=== PATIENT | female | born 1990 | race Two or more races ===

== ENCOUNTER 2018-12-22 17:15 | Observation (INO) | payer MEDICAID ==
--- NOTE | 2018-12-22 18:03 | OBPROG ---
Labor Progress Note Assessment/Plan: Assessment: 28 y/o @ 23 0/7 weeks s/p fall Plan: assessment is reassuring. No evidence of trauma. D/c home with reassurance and instructions to follow-up @ [facility] [address] as scheduled. 12/22/18 18:03 Subjective/Intrapartum Course: 12/22/18 17:59 Pt is a [facility] patient who reports falling down her stairs onto her buttocks today. She felt neck pain initially, but was most concerned about well being. She was offered an evaluation in the ER, but declined because she wanted to make sure her baby was ok. She has felt no VB, LOF and has felt FM since she has been here. She now reports mild neck stiffness and is declining Tylenol or ER evaluation. - Contraction Pattern Assessment Current Contraction Pattern: Other (Specify) (none) - FHR Assessment Huff FHR (bpm): 140 Oxytocin Orders Assessment - Pre-Induction/Augmentation Assessment Gestational Age: 23 week(s) and 0 day(s) ICD10 Worksheet Patient Problems: Problems Problem Status Onset Dang infection of genital region Acute Acute Back pain affecting Acute Oligohydramnios in third trimester Acute Vaginal bleeding during , antepartum Acute with third trimester bleeding, antepartum Acute
== END 2018-12-22 18:00 | disposition home or self-care (01) ==
LOC: FLD 17:15
PROVIDERS: ADMIT Obstetrics & Gynecology; ATTEND Obstetrics & Gynecology
DX: O9A.212 Injury, poisoning and certain other consequences of external causes complicating pregnancy, second trimester (principal); W10.8XXA Fall (on) (from) other stairs and steps, initial encounter; M54.2 Cervicalgia; Z3A.23 23 weeks gestation of pregnancy

== ENCOUNTER 2019-04-16 07:10 | Inpatient (IN) | payer MEDICAID, OTHER ==
[2019-04-16] MEDS ORDERED: OLIVE OIL 118 ML BTL MISC PRN (07:49)
[2019-04-16] MEDS ORDERED: PENICILLIN G POTASSIUM 5,000,000 UNIT in D5W 150 ML IV ONE (07:49)
[2019-04-16] MEDS ORDERED: OXYTOCIN/RINGERS LACTATE 1,000 ML IV PRN (07:49)
[2019-04-16] MEDS ORDERED: LR 1,000 ML IV PRN (07:49)
[2019-04-16] MEDS ORDERED: EPSOM SALT 454 GM TP PRN (07:49)
[2019-04-16] MEDS ORDERED: LIDOCAINE 1% 300 MG/30 ML SDV SC PRN (07:49)
[2019-04-16] MEDS ORDERED: IBUPROFEN 600 MG TAB PO PRN (07:49)
[2019-04-16] MEDS ORDERED: MISOPROSTOL 200 MCG TAB PR PRN (07:49)
[2019-04-16] MEDS ORDERED: MISOPROSTOL 200 MCG TAB ONE (07:51)
[2019-04-16] MEDS ORDERED: OXYTOCIN 10 UNIT/ML VIAL ONE (07:51)
[2019-04-16] MEDS ORDERED: TERBUTALINE SULFATE 1 MG/ML VIAL ONE (07:51)
[2019-04-16] MEDS ORDERED: OLIVE OIL 118 ML BTL MISC ONE (07:51)
[2019-04-16] MEDS ORDERED: LIDOCAINE 1% 300 MG/30 ML SDV ONE (07:51)
[2019-04-16] MEDS ORDERED: AMMONIA AROMATIC 1 EACH AMP IH ONE (07:51)
[2019-04-16 08:35] LABS: PLATELET COUNT 171 10^3/uL (150-400)
--- NOTE | 2019-04-16 08:45 | PDGENHP ---
History and Physical History and Physical: CARE: [facility] HPI: Patient is a 28 yo at 39.3 weeks ega who presents to L&D with complaints of regular contractions since 0500 - they are currently every 7 minutes and moderate. Denies leaking fluid and reports active baby. She has received care at [facility] and was planning delivery at [facility], but chose to come to [facility] when labor began. We [facility] at this time only have a verbal report of course/labs. EDC: 04/20/19 which is based on Ultrasound at 7 weeks - was inconsistent with LMP so EDC was adjusted. Her is complicated by: - h/o baby with Down's Syndrome - NIPT with this WNL - GBS pos Review of Systems: Constitutional: Denies any fever, chills, or fatigue HEENT: denies any visual changes, difficulty swallowing, hearing loss Cardiovascular: Denies any chest pain, palpitations, leg swelling Respiratory: denies any cough, wheezing, or shortness of breathe GI: Denies any nausea, vomiting, diarrhea, constipation : denies any dysuria, urgency, frequency, vaginal bleeding Musculoskeletal: denies any muscle or bone pain Skin: denies any rashes Neuro: denies any headache, seizures, lightheadedness, dizziness, or loss of consciousness Psychiatric: denies any depression, anxiety, or SI/HI thoughts HISTORY: Previous OB history: X3 Past medical history: patient denies Past surgical history: patient denies Medications: PNV Allergies (list reaction): NKDA LABS: Rh: O pos ABS: Neg Rubella: Immune HbsAg: NR HIV: NR VDRL: NR 1hr: 91 GC: unknown Chlamydia: unknown GBS: pos PHYSICAL EXAM: Constitutional: WN, A&Ox3 HEENT: normocephalic atraumatic, supple Heart: RRR, no murmur Chest: CTA-B Abdomen: Soft, nontender, gravid SVE: 6/-2 Extremities: sct edema, negative sarah's sign Neuro: grossly normal Psych: normal affect assessment: Reassuring FHTs, baseline 130s +accels, no decels, moderate variability Contractions: toco q 7 Assessment: 1) 28 yo G 4 P 3 with IUP@ 39.3 weeks ega 2) Active labor 3) GBS pos 4) Cat 1 FHR tracing 5) Requesting epidural Plan: 1) Admit to L&D 2) Anesthesia notified of request for epidural 3) Continuous monitoring 4) PCN prophylaxis per protocol 5) Anticipate
[2019-04-16] MEDS ORDERED: fentaNYL 2MCG/ML/BUP 0.1% RTU 100 ML BAG EP ONE (09:12)
[2019-04-16] MEDS ORDERED: BUPIVACAINE 0.25% 10 ML SDV ONE (09:13)
[2019-04-16] MEDS ORDERED: PHENYLEPHRINE HCL 100 MCG/ML SYR ONE (09:19)
[2019-04-16] MEDS ORDERED: LR 500 ML IV PRN (10:16)
[2019-04-16] MEDS ORDERED: OXYTOCIN/RINGERS LACTATE 500 ML IV SCH (10:30)
[2019-04-16] MEDS ORDERED: PENICILLIN G POTASSIUM 2,500,000 UNIT in D5W 150 ML IV SCH (11:50)
--- NOTE | 2019-04-16 11:58 | PREANESOB ---
Obstetric Pre-Anesthesia Info - General Info : 4 Para: 0 EVAN: 04/20/19 Gestational Age: 39 week(s) and 3 day(s) Anesthesia Allergies/Adverse Reactions: Allergy/AdvReac Type Severity Reaction Status Date / Time No Known Allergies Allergy Unverified 06/23/15 14:33 Home Medications: Medication Instructions Recorded Ondansetron Odt [Zofran Odt 4 mg 4 mg PO Q4 PRN #10 tab 06/23/15 (*)] 06/23/15 Docusate Sodium [Colace 100 MG (*)] 100 mg PO BID PRN #0 cap 12/31/15 Hydrocodone/APAP 5/325 [Gorman 1 - 2 tab PO Q4 PRN #30 tab 12/31/15 5/325 (*)] Ibuprofen [Motrin (*)] 600 mg PO Q6 PRN #30 tab 12/31/15 Visit Medications: Generic Name Dose Route Start Last Admin Trade Name Freq PRN Reason Stop Dose Admin Lactated Ringer's 1,000 mls @ 0 mls/hr 04/16/19 07:49 04/16/19 08:35 Lr IV 04/17/19 07:48 1,000 mls PRN PRN Administration SEE PROTOCOL CONDITIONS Protocol Per Protocol Oxytocin/Lactated Ringer's 1,000 mls @ 125 mls/hr 04/16/19 07:49 Pitocin 20 Units/Lr (Premix) IV PRN PRN Post bleeding Penicillin G Potassium 2,500, 155 mls @ 155 mls/hr 04/16/19 11:50 000 unit/ Dextrose IV 05/16/19 11:49 Q4H MARISOL Protocol Lactated Ringer's 500 mls @ 500 mls/hr 04/16/19 10:16 Lr IV 04/17/19 10:16 PRN PRN Maternal Hypotension Oxytocin/Lactated Ringer's 500 mls @ 0 mls/hr 04/16/19 10:30 04/16/19 10:36 Pitocin 30 Units/Lr (Premix) IV 10/13/19 10:29 500 mls CONT MARISOL Administration Protocol Per Protocol Ibuprofen 600 mg 04/16/19 07:49 Motrin PO ONCE PRN post , pain Lidocaine HCl 300 mg 04/16/19 07:49 Lidocaine Hcl 1% SC 10/13/19 07:48 ONCE PRN episiotomy Magnesium Sulfate 454 gm 04/16/19 07:49 Epsom Salt TP 10/13/19 07:48 Q1H PRN perineal discomfort Misoprostol 800 - 1,000 mcg 04/16/19 07:49 Cytotec [place] ONCE PRN Vaginal Atony/Bleeding [place] Oil 118 ml 04/16/19 07:49 Sweet Oil MISC 10/13/19 07:48 ONCE PRN perineal massage Discontinued Medications Generic Name Dose Route Start Last Admin Trade Name Freq PRN Reason Stop Dose Admin Ammonia (Aromatic Spirit) Confirm 04/16/19 07:51 Ammonia Aromatic Administered 04/16/19 07:52 Dose 1 each IH .STK-MED ONE Bupivacaine HCl Confirm 04/16/19 09:13 Sensorcaine 0.25% Sdv Administered 04/16/19 09:14 Dose 20 ml .ROUTE .STK-MED ONE Fentanyl/Bupivacaine HCl Confirm 04/16/19 09:12 Fentanyl/Bupivacaine/Ns 2 Mcg/Ml 0.1% (Premix Administered 04/16/19 09:13 Dose 100 ml EP .STK-MED ONE Penicillin G Potassium 5,000, 160 mls @ 160 mls/hr 04/16/19 07:49 04/16/19 08 :32 000 unit/ Dextrose IV 04/16/19 08:48 160 mls ONCE ONE Administration Protocol Lidocaine HCl Confirm 04/16/19 07:51 Lidocaine Hcl 1% Administered 04/16/19 07:52 Dose 300 mg .ROUTE .STK-MED ONE Misoprostol Confirm 04/16/19 07:51 Cytotec Administered 04/16/19 07:52 Dose 1,000 mcg .ROUTE .STK-MED ONE [place] Oil Confirm 04/16/19 07:51 Sweet Oil Administered 04/16/19 07:52 Dose 118 ml MISC .STK-MED ONE Oxytocin Confirm 04/16/19 07:51 Pitocin Administered 04/16/19 07:52 Dose 40 unit .ROUTE .STK-MED ONE Phenylephrine HCl Confirm 04/16/19 09:19 Neosynephrine Administered 04/16/19 09:20 Dose 1,000 mcg .ROUTE .STK-MED ONE Terbutaline Sulfate Confirm 04/16/19 07:51 Brethine Administered 04/16/19 07:52 Dose 1 mg .ROUTE .STK-MED ONE - Anesthesia History Response to Local Anesthetics: Normal Anesthesia & Operative History: No Prior Problems Family Anesthesia History: Negative - Social History Substance Use/Abuse: Denies - Vital Signs Height/Weight (Nursing): Height 162.56 cm Weight 72.575 kg - Focused Exam Neck exam: FROM Mallampati Score: Class 1 Mouth exam: normal dental/mouth exam Pulmonary: no respiratory distress Cardiovascular: regular rate and rhythym Labs: 04/16/19 08:15 Patient ABO/Rh O POSITIVE 04/16/19 08:15 - Plan Anesthetic Plan: PCEA Consent Signed and on Chart: Yes Patient/Guardian Understands and Agrees to Plan: Yes Urgent/Emergent Case: Coby victor completed preop but documented later for safe timely pt care
[2019-04-16] MEDS ORDERED: PHENYLEPHRINE HCL 100 MCG/ML SYR IVP PRN (11:59)
[2019-04-16] MEDS ORDERED: fentaNYL 2MCG/ML/BUP 0.1% RTU 100 ML EP SCH (12:00)
[2019-04-16] MEDS ORDERED: LR 500 ML IV SCH (12:00)
[2019-04-16] MEDS ORDERED: HYDROCODONE/APAP 5/325 TAB PO PRN (12:12)
[2019-04-16] MEDS ORDERED: SIMETHICONE 80 MG TAB CHEW PO PRN (12:12)
[2019-04-16] MEDS ORDERED: HYDROCORTISONE 0.5% CREAM TP PRN (12:12)
--- NOTE | 2019-04-16 12:12 | OBDEL ---
Info Type: Vaginal Presentation at Delivery: Vertex L&D Analgesia/Anesthesia Type: Epidural GBS+: Yes Antibiotic Used for + GBS: Ampicillin (PCN G per protocol X 1 dose) Intrapartum Medications: Generic Name Dose Route Start Last Admin Trade Name Freq PRN Reason Stop Dose Admin Lactated Ringer's 1,000 mls @ 0 mls/hr 04/16/19 07:49 04/16/19 08:35 Lr IV 04/17/19 07:48 1,000 mls PRN PRN Administration SEE PROTOCOL CONDITIONS Protocol Per Protocol Oxytocin/Lactated Ringer's 500 mls @ 0 mls/hr 04/16/19 10:30 04/16/19 10:36 Pitocin 30 Units/Lr (Premix) IV 10/13/19 10:29 500 mls CONT MARISOL Administration Protocol Per Protocol Discontinued Medications Generic Name Dose Route Start Last Admin Trade Name Freq PRN Reason Stop Dose Admin Penicillin G Potassium 5,000, 160 mls @ 160 mls/hr 04/16/19 07:49 04/16/19 08 :32 000 unit/ Dextrose IV 04/16/19 08:48 160 mls ONCE ONE Administration Protocol Indications for Delivery: Spontaneous Labor Vaginal Delivery - Delivery Provider Delivery Physician/CNM: María Trent - Labor and Delivery Onset of Contractions Date: 04/16/19 Onset of Contractions Time: 05:00 Onset of Contractions Type: Augmented Rupture of Membranes Date: 04/16/19 Rupture of Membranes Time: 11:31 Rupture of Membranes Type: Artificial Amniotic Fluid Color: Clear (t) Dilation Complete Date: 04/16/19 Dilation Complete Time: 11:22 Placenta Delivery Date: 04/16/19 Placenta Delivery Time: 11:50 Total Hours of Labor: 6 Non-surgical Procedures: Amniotomy Laceration: 1st Degree Repair: 3-0, Vicryl Vaginal Sponge Count Correct: Yes Vaginal Needle Count Correct: Yes Vaginal Sweep Performed: Yes EBL: 150 Delivery Events: None - Medications Labor Augmentation/Induction Methods Used: Pitocin Labor Augmentation/Induction Indication: Inadequate Contraction Frequency [place] Data EVAN: 04/20/19 Gestational Age: 39 week(s) and 3 day(s) Huff Delivery Date: 04/16/19 Delivery Time: 11:45 Sex of : Female Score (1 Min): 8 Score (5 Min): 9 ICD10 Worksheet Patient Problems: Problems Problem Status Onset Vaginal delivery Acute Back pain affecting Acute Dang infection of genital region Acute Oligohydramnios in third trimester Acute Acute with third trimester bleeding, antepartum Acute Vaginal bleeding during , antepartum Acute - ICD10 Problem Qualifiers (1) Vaginal delivery
[2019-04-16] MEDS: IBUPROFEN 600 MG TAB PO PRN (18:41)
[2019-04-17] MEDS: ACETAMINOPHEN 325 MG TAB PO PRN ×4 (00:07→22:22)
[2019-04-17] MEDS: IBUPROFEN 600 MG TAB PO PRN ×4 (04:01→22:22)
[2019-04-17] MEDS: DOCUSATE SODIUM 100 MG CAP PO PRN (10:16)
--- NOTE | 2019-04-17 12:25 | OBPP ---
Progress Note Assessment/Plan: Assessment: 1. First PP day 2. 3. Breast feeding with minimal assistance Plan: 1. support 2. D/C home tomorrow. 04/17/19 12:24 Subjective/ Course: 04/17/19 12:24 Doing well. No c/o. Pain management effective. Objective: 04/16/19 08:15 Patient ABO/Rh O POSITIVE 04/16/19 08:15 Temp Pulse Resp BP Pulse Ox 36.2 C 67 16 94/63 L 91 L 04/16/19 19:45 04/16/19 19:45 04/16/19 19:45 04/16/19 19:45 04/16/19 16:33 Uterine Position/Fundal Height: At Umbilicus Uterine Tone: Firm
[2019-04-18] MEDS: IBUPROFEN 600 MG TAB PO PRN ×2 (04:19→10:42)
[2019-04-18] MEDS: ACETAMINOPHEN 325 MG TAB PO PRN ×2 (04:19→10:42)
--- NOTE | 2019-04-18 07:44 | OBGCSDC ---
General Delivery Information - General Info : 4 Para: 4 Abortions: 0 Type: Vaginal L&D Analgesia/Anesthesia Type: Epidural Admission Date: 04/16/19 Labs: Patient ABO/Rh O POSITIVE 04/16/19 08:15 Hct 37.8 % (38.0-47.0) L 04/16/19 08:15 Temp Pulse Resp BP Pulse Ox 04/17/19 19:42 36.5 C 73 18 95/62 L 92 04/17/19 10:15 36.4 C 63 16 102/66 94 - Hospital Course : 04/17/19 12:24 Doing well. No c/o. Pain management effective. 04/18/19 07:44 doing well. Pain management effective. Pt is pumping breast milk and supplementing with formula. Vaginal - Delivery Provider Delivery Physician/CNM: María Trent - Diagnosis Labor: Augmented Rupture of Membranes Type: Artificial Amniotic Fluid Color: Clear (t) Laceration: 1st Degree Repair: 3-0, Vicryl Delivery Events: None - Procedures Non-surgical Procedures: Amniotomy - Delivery Non-surgical Procedures: Amniotomy EBL: 150 Data EVAN: 04/20/19 Gestational Age: 39 week(s) and 5 day(s) Huff Delivery Date: 04/16/19 Delivery Time: 11:45 Sex of Infant: Female Weight (gm): 3630 g Score (1 Min): 8 Score (5 Min): 9 Discharge Information - Discharge Information Instruction/Follow Up: Two Weeks, Six Weeks (at [facility])
[2019-04-18 09:07] VITALS: BP 109/69
[2019-04-18] MEDS: DOCUSATE SODIUM 100 MG CAP PO PRN (10:42)
--- NOTE | 2019-04-21 21:00 | GPROG ---
[f rep st] PROGRESS NOTE The patient's respiratory status is normal, stable. The patient's cardiovascular status is normal, s table. Nausea and vomiting control is satisfactory at this time with p.r.n. treatment ordered. Pain control is satisfactory at this time with p.r.n. treatment ordered. Mental status is slightly sleep y, easily arousable. Complications due to anesthesia are none at this time. /[id number]/MODL
== END 2019-04-18 11:39 | disposition home or self-care (01) | DRG 807 ==
LOC: FLD 07:10 → FOB 14:45
PROVIDERS: ADMIT Advanced Practice Midwife; ATTEND Advanced Practice Midwife
DX: O99.824 Streptococcus B carrier state complicating childbirth (principal); Z37.0 Single live birth; Z3A.39 39 weeks gestation of pregnancy; O70.0 First degree perineal laceration during delivery
CPT/HCPCS: J2370; J2540; J2590; J3105